=== PATIENT | male | born 1940 | race Caucasian/White ===

== ENCOUNTER 2022-12-10 21:36 | Inpatient (IN) | payer MEDICARE, OTHER ==
[~2022-12-10] VITALS: Ht 172.7 cm; Wt 70.8 kg
--- NOTE | 2022-12-10 19:00 | NUR ---
ADMISSION REPORT RECEIVED FROM AM NURSE.
--- NOTE | 2022-12-10 21:00 | NUR ---
PATIENT ARRIVED IN THE UNIT FROM [facility] VIA [facility], AWAKE, ALERT AND VERBALLY RESPONSIVE. TRANSFERRED FROM [place] TO BED WITH 2 PEOPLE ASSIST, NOTED ABDUCTION PILLOW IN BETWEEN LEGS IN PLACED. REPOSITIONED FOR COMFORT. RIGHT HIP DRESSING INTACT WITH SOME YELLOW STAIN, [facility] CARE/SKIN CARE RENDERED. SKIN ASSESSMENT PERFORMED. ORIENTED PATIENT TO STAFFS, ROOM, PLACE, CALL LIGHT, AND BED CONTROL. rOUTINE ADMISSION CARE DONE. PLAN OF CARE INITIATED.
[2022-12-10 21:08] VITALS: BP 156/74
[2022-12-10] MEDS ORDERED: ACET-2154 PO (22:34)
[2022-12-10] MEDS ORDERED: ASCO500C17 PO (22:34)
[2022-12-10] MEDS ORDERED: METO-356 PO (22:34)
[2022-12-10] MEDS ORDERED: ALBU8.5H8 IH (22:34)
[2022-12-10] MEDS ORDERED: DOCU100C36 PO (22:34)
[2022-12-10] MEDS ORDERED: DIVA125T2 PO (22:34)
[2022-12-10] MEDS ORDERED: ATOR40TA PO (22:34)
[2022-12-10] MEDS ORDERED: BISA10SU61 RC (22:34)
[2022-12-10] MEDS ORDERED: TAMS-3 PO (22:34)
[2022-12-10] MEDS ORDERED: AMLO-212 PO (22:34)
[2022-12-10] MEDS ORDERED: FINA5TAB3 PO (22:34)
[2022-12-10] MEDS ORDERED: HYDR-3972 PO (22:34)
[2022-12-10] MEDS ORDERED: LEVO50TA8 PO (22:34)
[2022-12-10] MEDS ORDERED: ENOX30DI SUBCUT (22:34)
[2022-12-10] MEDS: REMEDY ESSENTIAL ZINC PASTE 113 GM TOP SCH (23:48)
[2022-12-11 05:32] VITALS: BP 151/79
[2022-12-11 07:46] VITALS: BP 128/75
[2022-12-11] MEDS: REMEDY ESSENTIAL ZINC PASTE 113 GM TOP SCH ×2 (09:49→20:36)
[2022-12-11] MEDS ORDERED: OXYCODONE/APAP 5-325 MG TABLET PO PRN (12:45)
[2022-12-11] MEDS ORDERED: BISACODYL 10 MG SUPP.RECT RC PRN (12:45)
--- NOTE | 2022-12-11 12:58 | NUR ---
During report from night guard, I was notified that doctor was asked to reconcile meds but it had not been done yet. I messaged Jo-Ann Harrison NP at [phone] to remind him to reconcile the meds. He replied "yes" that 315 is his patient. Around noon I saw Mando, [facility] Educational Coordinator, and notified him that no meds had been reconciled yet. Mando said that he would notify Jo-Ann Harrison to reconcile meds. Dr. Maddox visited the pt at his bedside, pt complained of pain. Dr. Maddox asked me what he has for pain. I said that I had been trying to get Jo-Ann Harrison to reconcile the meds all day. Dr. Maddox ordered Percocet. After I put the Percocet into the computer, Jo-Ann Harrison NP's reconciled medications appeared just now.
[2022-12-11] MEDS ORDERED: METO50TA16 PO (12:59)
[2022-12-11] MEDS ORDERED: ALBUTEROL SULFATE 2.5 MG/3 ML NEBU NEB PRN (13:00)
[2022-12-11] MEDS ORDERED: IPRATROPIUM BROMIDE 0.5 MG/2.5 ML NEBU NEB PRN (13:00)
[2022-12-11 13:08] LABS: HEMATOCRIT 39.1 % (36.7-47.1); MEAN CORPUSCULAR HEMOGLOBIN 30.5 uug (23.8-33.4); MEAN CORPUSCULAR VOLUME 93.3 fL (73.0-96.2); PLATELET COUNT (AUTO) 227 K/uL (152-348)
[2022-12-11] MEDS: HYDROCODONE/APAP 5-325MG TABLET PO PRN (14:24)
--- NOTE | 2022-12-11 15:33 | NUR ---
INTERDISCIPLINARY TEAM CONFERENCE
[2022-12-11 15:47] VITALS: BP 134/69
[2022-12-11] MEDS ORDERED: METOPROLOL SUCCINATE XL 25 MG TAB.SR.24H PO SCH (17:00)
[2022-12-11] MEDS: METOPROLOL TARTRATE 50 MG TABLET PO SCH (17:13)
--- NOTE | 2022-12-11 18:48 | NUR ---
Pt A+Ox2, VSS throughout shift. Pt did have moments of hostility with TAILER IN, OT, PT and RN. He gets verbally aggressive. When asked if he'd like to eat, he said loudly, "I DON'T KNOW!". He was c/o pain to Dr. Maddox when he stopped by. When I asked where the pain is and what number it is from 1-10, he said calmly, "I don't know." I said, But you are having pain? He said clearly, "Yes." Monitored throughout shift, all needs met. Will endorse to shift coordinator.
[2022-12-11 18:55] LABS: CARBON DIOXIDE 28 mmol/L (21-32); CHLORIDE 104 mmol/L (98-107); CREATININE 1.2 mg/dL (0.6-1.3); GLUCOSE 84 mg/dL (74-106); POTASSIUM 4.2 mmol/L (3.5-5.1); UREA NITROGEN, BLOOD 32 mg/dL (7-18)
[2022-12-11 18:57] LABS: MAGNESIUM 2.3 mg/dL (1.8-2.4); PHOSPHOROUS 3.8 mg/dL (2.5-4.9)
[2022-12-11 18:58] LABS: THYROID STIMULATING HORMONE 1.225 mIU/mL (0.358-3.740)
--- NOTE | 2022-12-11 19:35 | NUR ---
INTERDISCIPLINARY TEAM CONFERENCE
[2022-12-11 20:00] VITALS: BP 142/68
[2022-12-11] MEDS: DOCUSATE SODIUM 100 MG CAPSULE PO SCH (20:35)
[2022-12-11] MEDS: DIVALPROEX 125 MG TABLET.DR PO SCH (20:35)
[2022-12-11] MEDS: ENOXAPARIN SODIUM 30 MG/0.3 ML DISP.SYRIN SUBCUT SCH (20:35)
[2022-12-11] MEDS: ATORVASTATIN 40 MG TABLET PO SCH (20:35)
[2022-12-12 03:52] VITALS: BP 139/60
[2022-12-12] MEDS: LEVOTHYROXINE SODIUM 50 MCG TABLET PO SCH (06:18)
--- NOTE | 2022-12-12 06:25 | NUR ---
Patient refused morning lab draw. Charge nurse aware. Will endorse to oncoming shift accordingly.
--- NOTE | 2022-12-12 07:03 | NUR ---
Finally agreed for a lab draw.
[2022-12-12 07:13] LABS: HEMATOCRIT 36.9 % (36.7-47.1); MEAN CORPUSCULAR HEMOGLOBIN 30.6 uug (23.8-33.4); MEAN CORPUSCULAR VOLUME 92.8 fL (73.0-96.2); PLATELET COUNT (AUTO) 255 K/uL (152-348)
[2022-12-12 07:45] LABS: CARBON DIOXIDE 32 mmol/L (21-32); CHLORIDE 105 mmol/L (98-107); CREATININE 1.1 mg/dL (0.6-1.3); GLUCOSE 112 mg/dL (74-106); MAGNESIUM 2.2 mg/dL (1.8-2.4); PHOSPHOROUS 3.3 mg/dL (2.5-4.9); POTASSIUM 4.4 mmol/L (3.5-5.1); UREA NITROGEN, BLOOD 34 mg/dL (7-18)
[2022-12-12] MEDS: DIVALPROEX 125 MG TABLET.DR PO SCH ×2 (08:00→20:43)
[2022-12-12] MEDS: METOPROLOL TARTRATE 50 MG TABLET PO SCH ×2 (08:01→17:28)
[2022-12-12] MEDS: ASCORBIC ACID 500 MG TABLET PO SCH (08:55)
[2022-12-12] MEDS: FINASTERIDE 5 MG TABLET PO SCH (08:55)
[2022-12-12] MEDS: AMLODIPINE 5 MG TABLET PO SCH (08:55)
[2022-12-12] MEDS: REMEDY ESSENTIAL ZINC PASTE 113 GM TOP SCH ×2 (08:56→20:46)
[2022-12-12] MEDS ORDERED: TAMSULOSIN HCL 0.4 MG CAP.SR.24H PO SCH (09:00)
[2022-12-12] MEDS ORDERED: ASCORBIC ACID 500 MG TABLET PO SCH (09:00)
[2022-12-12 09:04] VITALS: BP 155/79
[2022-12-12] MEDS: HYDROCODONE/APAP 5-325MG TABLET PO PRN (09:34)
[2022-12-12 15:12] VITALS: BP 120/60
[2022-12-12 20:00] VITALS: BP 114/61
[2022-12-12] MEDS: ATORVASTATIN 40 MG TABLET PO SCH (20:43)
[2022-12-12] MEDS: DOCUSATE SODIUM 100 MG CAPSULE PO SCH (20:43)
[2022-12-12] MEDS: ENOXAPARIN SODIUM 30 MG/0.3 ML DISP.SYRIN SUBCUT SCH (20:45)
--- NOTE | 2022-12-12 23:00 | NUR ---
1915- The patient is aox2. The patient has an abductor pillow to prevent crossing his legs. The patient has no IV access. The patient does not have any sob or complains of pain. The patient is resting comfortably. Call light within reach, two side rails up, bed at lowest posintion, bed alarm on. Will continue to monitor throughout the shift. 2200- The patient requesty for an extra pillow. Item is given to the patient. The patient has no sob. Will continue to monitor throughout the shift. 0400- Changed the dressings of the right hip. Clean, dry, and intact dressings. The patient has no sob or complains of pain. Will continue to monitor throughout the shift.
[2022-12-13 04:00] VITALS: BP 139/70
[2022-12-13] MEDS: LEVOTHYROXINE SODIUM 50 MCG TABLET PO SCH (06:26)
[2022-12-13 07:41] VITALS: BP 156/74
[2022-12-13 08:00] VITALS: BP 156/74
[2022-12-13] MEDS: METOPROLOL TARTRATE 50 MG TABLET PO SCH ×2 (09:23→17:00)
[2022-12-13] MEDS: DIVALPROEX 125 MG TABLET.DR PO SCH ×2 (09:23→20:32)
[2022-12-13] MEDS: ASCORBIC ACID 500 MG TABLET PO SCH (09:23)
[2022-12-13] MEDS: REMEDY ESSENTIAL ZINC PASTE 113 GM TOP SCH ×2 (09:24→20:33)
[2022-12-13] MEDS: AMLODIPINE 5 MG TABLET PO SCH (09:24)
[2022-12-13] MEDS: FINASTERIDE 5 MG TABLET PO SCH (09:24)
[2022-12-13] MEDS: HYDROCODONE/APAP 5-325MG TABLET PO PRN ×2 (12:21→17:09)
[2022-12-13 15:26] VITALS: BP 100/55
[2022-12-13 20:19] VITALS: BP 147/66
[2022-12-13] MEDS: DOCUSATE SODIUM 100 MG CAPSULE PO SCH (20:32)
[2022-12-13] MEDS: ATORVASTATIN 40 MG TABLET PO SCH (20:32)
[2022-12-13] MEDS: TAMSULOSIN HCL 0.4 MG CAP.SR.24H PO SCH (20:32)
[2022-12-13] MEDS: ENOXAPARIN SODIUM 30 MG/0.3 ML DISP.SYRIN SUBCUT SCH (20:35)
--- NOTE | 2022-12-13 23:00 | NUR ---
1915- The patient is aox2. The patient has an abductor pillow to prevent crossing his legs. The patient has no IV access. The patient does not have any sob or complains of pain. The patient is resting comfortably. Call light within reach, two side rails up, bed at lowest position, bed alarm on. Will continue to monitor throughout the shift. 2300- The patient request for an extra blanket. Item is given to the patient. The patient has no sob. Will continue to monitor throughout the shift. 0500- Changed the dressings of the right hip. Clean, dry, and intact dressings. The patient has no sob or complains of pain. Will continue to monitor throughout the shift.
[2022-12-14] MEDS: HYDROCODONE/APAP 5-325MG TABLET PO PRN ×2 (01:45→12:39)
[2022-12-14 04:22] VITALS: BP 134/68
[2022-12-14] MEDS: LEVOTHYROXINE SODIUM 50 MCG TABLET PO SCH (06:40)
--- NOTE | 2022-12-14 07:30 | NUR ---
received report on patient from dye tub tender. A/Ox2, disoriented to time. pt on room air, saturating at 94%, on bedrest with abductor pillow. pt on pureed diet, max assist. Bed in low and locked position, call light within reach, will continue to monitor.
[2022-12-14] MEDS: ASCORBIC ACID 500 MG TABLET PO SCH (09:29)
[2022-12-14] MEDS: DIVALPROEX 125 MG TABLET.DR PO SCH ×2 (09:29→21:41)
[2022-12-14] MEDS: FINASTERIDE 5 MG TABLET PO SCH (09:30)
[2022-12-14] MEDS: REMEDY ESSENTIAL ZINC PASTE 113 GM TOP SCH ×2 (09:30→21:41)
[2022-12-14] MEDS: METOPROLOL TARTRATE 50 MG TABLET PO SCH ×2 (09:35→17:32)
[2022-12-14] MEDS: AMLODIPINE 5 MG TABLET PO SCH (09:35)
[2022-12-14 20:16] VITALS: BP 118/54
[2022-12-14] MEDS: DOCUSATE SODIUM 100 MG CAPSULE PO SCH (21:41)
[2022-12-14] MEDS: ATORVASTATIN 40 MG TABLET PO SCH (21:41)
[2022-12-14] MEDS: TAMSULOSIN HCL 0.4 MG CAP.SR.24H PO SCH (21:41)
[2022-12-14] MEDS: ENOXAPARIN SODIUM 30 MG/0.3 ML DISP.SYRIN SUBCUT SCH (21:47)
--- NOTE | 2022-12-14 23:00 | NUR ---
1915- The patient is aox2. The patient has an abductor pillow to prevent crossing his legs. The patient does not have any sob or complains of pain. The patient is resting comfortably. Call light within reach, two side rails up, bed at lowest position, bed alarm on. Will continue to monitor throughout the shift. 2200- The patient request for an extra pillow. Item is given to the patient. The patient has no sob. Will continue to monitor throughout the shift. 0600- Changed the dressings of the right hip. Clean, dry, and intact dressings. The patient has no sob or complains of pain. Will continue to monitor throughout the shift.
[2022-12-15] MEDS: HYDROCODONE/APAP 5-325MG TABLET PO PRN ×3 (03:13→16:35)
[2022-12-15 04:11] VITALS: BP 147/68
[2022-12-15 06:16] LABS: HEMATOCRIT 38.1 % (36.7-47.1); MEAN CORPUSCULAR VOLUME 93.4 fL (73.0-96.2); PLATELET COUNT (AUTO) 336 K/uL (152-348)
[2022-12-15] MEDS: LEVOTHYROXINE SODIUM 50 MCG TABLET PO SCH (06:18)
[2022-12-15 06:39] LABS: THYROID STIMULATING HORMONE 3.587 mIU/mL (0.358-3.740)
[2022-12-15 06:53] LABS: BILIRUBIN,TOTAL 0.3 mg/dL (0.2-1.0); CREATININE 1.3 mg/dL (0.6-1.3); MAGNESIUM 2.1 mg/dL (1.8-2.4); PHOSPHOROUS 3.2 mg/dL (2.5-4.9); POTASSIUM 5.2 mmol/L (3.5-5.1); TOTAL PROTEIN, SERUM 6.5 g/dL (6.4-8.2)
[2022-12-15 07:56] VITALS: BP 132/84
[2022-12-15] MEDS ORDERED: ACETAMINOPHEN 325 MG TABLET PO PRN (08:15)
[2022-12-15] MEDS: ASCORBIC ACID 500 MG TABLET PO SCH (08:32)
[2022-12-15] MEDS: AMLODIPINE 5 MG TABLET PO SCH (08:32)
[2022-12-15] MEDS: REMEDY ESSENTIAL ZINC PASTE 113 GM TOP SCH ×2 (08:33→21:10)
[2022-12-15] MEDS: METOPROLOL TARTRATE 50 MG TABLET PO SCH ×2 (08:33→16:35)
[2022-12-15] MEDS: FINASTERIDE 5 MG TABLET PO SCH (08:33)
[2022-12-15] MEDS: DIVALPROEX 125 MG TABLET.DR PO SCH ×2 (08:33→21:07)
--- NOTE | 2022-12-15 15:54 | NUR ---
patient is alert, oriented x4, no sob, respiration are even nonlabored, skin warm and dry to touch, incision site is clean and dry, no signs and symptoms of infection noted
[2022-12-15 16:24] VITALS: BP 134/61
--- NOTE | 2022-12-15 17:55 | NUR ---
Patient has no respiratory symptom, no cough, no congestion, no sob, respirations are even nonlabored skin warm and dry to touch, afebrile, saturating well 94% at room air. patient tolerated PT, OT well, patient stated she has urinary frequency, and mild to moderate dysuria. however no hematuria. patient is alert, oriented x4, no acute distress noted. Addendum: 12/15/22 at 1800 by SAAD COLIN RN, RN disregard above documentation, wrong patient.
[2022-12-15 19:00] VITALS: BP 111/58
[2022-12-15] MEDS: ATORVASTATIN 40 MG TABLET PO SCH (21:07)
[2022-12-15] MEDS: TAMSULOSIN HCL 0.4 MG CAP.SR.24H PO SCH (21:07)
[2022-12-15] MEDS: DOCUSATE SODIUM 100 MG CAPSULE PO SCH (21:07)
[2022-12-15] MEDS: ENOXAPARIN SODIUM 30 MG/0.3 ML DISP.SYRIN SUBCUT SCH (21:09)
[2022-12-16 04:28] VITALS: BP 128/67
--- NOTE | 2022-12-16 05:41 | NUR ---
Pt slept comfortably. Kept abduction pillow between legs. Denies pain or discomfort. Kept dry and clean. All needs attended. Safety precautions maintained.
[2022-12-16] MEDS: HYDROCODONE/APAP 5-325MG TABLET PO PRN ×2 (06:12→11:21)
[2022-12-16] MEDS: LEVOTHYROXINE SODIUM 50 MCG TABLET PO SCH (06:13)
[2022-12-16 07:58] VITALS: BP 141/62
[2022-12-16] MEDS: DIVALPROEX 125 MG TABLET.DR PO SCH ×2 (08:22→20:37)
[2022-12-16] MEDS: AMLODIPINE 5 MG TABLET PO SCH (08:22)
[2022-12-16] MEDS: METOPROLOL TARTRATE 50 MG TABLET PO SCH ×2 (08:22→16:52)
[2022-12-16] MEDS: FINASTERIDE 5 MG TABLET PO SCH (08:22)
[2022-12-16] MEDS: ASCORBIC ACID 500 MG TABLET PO SCH (08:22)
[2022-12-16] MEDS: REMEDY ESSENTIAL ZINC PASTE 113 GM TOP SCH ×2 (08:23→20:38)
--- NOTE | 2022-12-16 08:36 | NUR ---
0730-Rec'd patient in bed, awake, verbally communicative, denies pain. On R/A and andrew. well, no physical or respiratory distress noted. Oral fluids encouraged and taken well; HOB elevated, aspiration precautions observed. Encouraged to use call light for help every time needed. All safety measures in place.
--- NOTE | 2022-12-16 09:36 | NUR ---
0900-Scheduled medications administered as ordered. No ASE noted; patient swallow pills with apple sauce. Aspiration precautions observed, no s/s of chocking noted. Patient requires of one person physical assist to set up meal tray and to be fed.
--- NOTE | 2022-12-16 14:30 | NUR ---
1:40pm-Ashely CRANE (PHARMACIST) CAME UP TO THE UNIT, WE BOTH ATTEMPTED TO CORRECT NARCOTIC (OXYIR) DISCREPANCY & UNABLE TO SOLVE IT, PER RYOCE, "I DO NOT KNOW HOW TO GET RID OF THE MESSAGE PROMPTING" 2:32PM-LEFT A MESSAGE FOR HS, ALENA TO COME UP TO THE FLOOR AND HELP OUT SOLVE THE ISSUE & AWAITING. Addendum: 12/16/22 at 1528 by OLIVIA EVERETT RN INCORRECT PATIENT
--- NOTE | 2022-12-16 15:49 | NUR ---
LAB RESULTS FOR CBC/BMP DATED 12/15/[address] JAIME.
[2022-12-16 15:50] VITALS: BP 118/54
--- NOTE | 2022-12-16 18:49 | NUR ---
RIGHT HIP SURGICAL SITE, DRESSING CHANGED, NO S/S OF INFECTION OR BLEEDING NOTED. ASSISTED PATIENT THROUGH OUT THE SHIFT. CARE PROVIDED AT ROUTINE INTERVALS/PRN. ALL NEEDS ANTICIPATED AND MET.
[2022-12-16 20:00] VITALS: BP 156/70
[2022-12-16] MEDS: DOCUSATE SODIUM 100 MG CAPSULE PO SCH (20:37)
[2022-12-16] MEDS: TAMSULOSIN HCL 0.4 MG CAP.SR.24H PO SCH (20:37)
[2022-12-16] MEDS: ATORVASTATIN 40 MG TABLET PO SCH (20:37)
[2022-12-16] MEDS: ENOXAPARIN SODIUM 30 MG/0.3 ML DISP.SYRIN SUBCUT SCH (20:37)
--- NOTE | 2022-12-17 01:04 | NUR ---
given Tylenol c/o generalized pain . patient took medication with applesauce .
--- NOTE | 2022-12-17 02:30 | NUR ---
incontinent of urine meat department manager changed soiled linens and gown . noted patient scratching his upper and lower extremities skin is dry applied lotion to upper and lower extremities .
--- NOTE | 2022-12-17 03:30 | NUR ---
sleeping in bed no respiratory distress noted breathing even and unlabored .
[2022-12-17 04:00] VITALS: BP 124/56
--- NOTE | 2022-12-17 04:06 | NUR ---
given [place] c/o left hip pain patient said left hip given NORCO .
[2022-12-17] MEDS: HYDROCODONE/APAP 5-325MG TABLET PO PRN ×2 (04:54→09:03)
[2022-12-17 07:12] LABS: HEMATOCRIT 36.3 % (36.7-47.1); MEAN CORPUSCULAR HEMOGLOBIN 30.5 uug (23.8-33.4); MEAN CORPUSCULAR VOLUME 92.7 fL (73.0-96.2); PLATELET COUNT (AUTO) 377 K/uL (152-348)
[2022-12-17 07:25] LABS: ALANINE AMINOTRANSFERASE 23 U/L (16-63); ALKALINE PHOSPHATASE 83 U/L (50-136); ASPARTATE AMINOTRANSFERASE 19 U/L (15-37); BILIRUBIN,TOTAL 0.3 mg/dL (0.2-1.0); CARBON DIOXIDE 31 mmol/L (21-32); CHLORIDE 105 mmol/L (98-107); CREATININE 1.3 mg/dL (0.6-1.3); GLUCOSE 96 mg/dL (74-106); MAGNESIUM 2.2 mg/dL (1.8-2.4); PHOSPHOROUS 3.2 mg/dL (2.5-4.9); POTASSIUM 4.3 mmol/L (3.5-5.1); TOTAL PROTEIN, SERUM 6.2 g/dL (6.4-8.2); UREA NITROGEN, BLOOD 31 mg/dL (7-18)
[2022-12-17 07:55] VITALS: BP 140/57
[2022-12-17] MEDS: LEVOTHYROXINE SODIUM 50 MCG TABLET PO SCH (07:59)
[2022-12-17] MEDS: FINASTERIDE 5 MG TABLET PO SCH (08:18)
[2022-12-17] MEDS: ASCORBIC ACID 500 MG TABLET PO SCH (08:18)
[2022-12-17] MEDS: DIVALPROEX 125 MG TABLET.DR PO SCH ×2 (08:18→20:41)
[2022-12-17] MEDS: REMEDY ESSENTIAL ZINC PASTE 113 GM TOP SCH ×2 (08:18→20:51)
[2022-12-17] MEDS: AMLODIPINE 5 MG TABLET PO SCH (08:18)
[2022-12-17] MEDS: METOPROLOL TARTRATE 50 MG TABLET PO SCH ×2 (08:18→17:54)
--- NOTE | 2022-12-17 09:05 | NUR ---
0730-REC'D PATIENT IN BED, ASLEEP, NO ACUTE RESPIRATORY DISTRESS, ABLE TO WAKE UP ON VERBAL COMMANDS/TACTILE STIMULI. PATIENT DENIES PAIN, ORAL FLUIDS OFFERED AND TAKEN WELL. SAFETY MEASURES AND CALL LIGHT AT REACH. 0900-SCHEDULED MEDICATION ADMINISTERED WITH NO ASE NOTED.
[2022-12-17] MEDS ORDERED: ZINC TOP PRN (10:00)
[2022-12-17] MEDS ORDERED: DIPHENHYDRAMINE TOP PRN (10:00)
--- NOTE | 2022-12-17 10:44 | NUR ---
Received report from Mesha RN to take over care for the rest of the day shift starting now. Pt in bed resting at this time, no s/s of distress noted. Will continue with care as ordered.
[2022-12-17 15:40] VITALS: BP 107/58
[2022-12-17 15:50] VITALS: BP 98/50
[2022-12-17 20:00] VITALS: BP 134/66
[2022-12-17] MEDS: DOCUSATE SODIUM 100 MG CAPSULE PO SCH (20:41)
[2022-12-17] MEDS: TAMSULOSIN HCL 0.4 MG CAP.SR.24H PO SCH (20:41)
[2022-12-17] MEDS: ENOXAPARIN SODIUM 30 MG/0.3 ML DISP.SYRIN SUBCUT SCH (20:50)
--- NOTE | 2022-12-18 03:48 | NUR ---
Awake alert and oriented x3-4 with periods of forgetfulness. All needs attended. Tolerated po meds well Fall precautions maintained. Incontinent of bowel and bladder. Kept clean and dry. No BM noted this shift. Will monitor patient. Patient S/P ORIF of the right hip. Right hip incision with adan intact. Dressing clean dry and intact. VSS.
[2022-12-18 04:00] VITALS: BP 138/65
[2022-12-18] MEDS: LEVOTHYROXINE SODIUM 50 MCG TABLET PO SCH (06:18)
[2022-12-18 07:31] VITALS: BP 125/68
[2022-12-18] MEDS: DIVALPROEX 125 MG TABLET.DR PO SCH ×2 (08:37→20:41)
[2022-12-18] MEDS: ASCORBIC ACID 500 MG TABLET PO SCH (08:37)
[2022-12-18] MEDS: METOPROLOL TARTRATE 50 MG TABLET PO SCH ×2 (08:38→17:17)
[2022-12-18] MEDS: FINASTERIDE 5 MG TABLET PO SCH (08:38)
[2022-12-18] MEDS: AMLODIPINE 5 MG TABLET PO SCH (08:38)
[2022-12-18] MEDS: REMEDY ESSENTIAL ZINC PASTE 113 GM TOP SCH ×2 (08:40→20:41)
[2022-12-18] MEDS: HYDROCODONE/APAP 5-325MG TABLET PO PRN ×2 (08:57→13:42)
--- NOTE | 2022-12-18 12:56 | NUR ---
INTERDISCIPLINARY TEAM CONFERENCE
[2022-12-18 16:00] VITALS: BP 112/46
--- NOTE | 2022-12-18 19:52 | NUR ---
RECEIVED REPORT FROM JA VAUGHN, ILAN SHIFT. PATIENT IS ALERT & ORIENTED X2-3, WITH PERIODS OF FORGETFULNESS, AND SPEAKS ROMANIAN. VITAL SIGNS STABLE. PATIENT TOLERATES PO MEDICATIONS AND DIET WELL. PATIENT PARTICIPATES WITH PHYSICAL AND OCCUPATIONAL THERAPY SCHEDULED. PATIENT HAD COMPLAINT OF PAIN. RN PROVIDED MEDICATIONS ORDERED BY MD. PATIENT EXPRESSED RELIEF. RN NOTED NEW SKIN TEAR ON THE RIGHT ELBOW. WOUND CONSULT ORDERED. CLEANED WITH NORMAL SALINE, APPLIED OIL EMULSION DRESSING. ALL NEEDS ATTENDED TO AT THIS TIME. NO ACUTE DISTRESS NOTED. FALL PRECAUTIONS IN PLACE. ENDORSED CARE TO JA TOVAR, ILAN SHIFT FOR CONTINUATION OF CARE.
[2022-12-18 20:00] VITALS: BP 115/54
[2022-12-18] MEDS: ENOXAPARIN SODIUM 30 MG/0.3 ML DISP.SYRIN SUBCUT SCH (20:39)
[2022-12-18] MEDS: TAMSULOSIN HCL 0.4 MG CAP.SR.24H PO SCH (20:41)
[2022-12-18] MEDS: DOCUSATE SODIUM 100 MG CAPSULE PO SCH (20:41)
--- NOTE | 2022-12-18 23:00 | NUR ---
1905-The patient is aox2. The patient has an abductor pillow to prevent crossing his legs. The patient has no IV access. The patient does not have any sob or complains of pain. The patient is resting comfortably. Call light within reach, two side rails up, bed at lowest position, bed alarm on. Will continue to monitor throughout the shift. 2200- The patient request for extra apple juice. Item is given to the patient. The patient has no sob. Will continue to monitor throughout the shift. 0530- Changed the dressings of the right hip. Clean, dry, and intact dressings. The patient has no sob or complains of pain. Will continue to monitor throughout the shift.
[2022-12-19 04:00] VITALS: BP 141/60
[2022-12-19] MEDS: LEVOTHYROXINE SODIUM 50 MCG TABLET PO SCH (06:15)
[2022-12-19 07:46] VITALS: BP 118/64
[2022-12-19] MEDS: AMLODIPINE 5 MG TABLET PO SCH (09:00)
[2022-12-19] MEDS: METOPROLOL TARTRATE 50 MG TABLET PO SCH ×2 (09:00→16:53)
[2022-12-19] MEDS: ASCORBIC ACID 500 MG TABLET PO SCH (09:04)
[2022-12-19] MEDS: FINASTERIDE 5 MG TABLET PO SCH (09:04)
[2022-12-19] MEDS: HYDROCODONE/APAP 5-325MG TABLET PO PRN ×2 (09:06→15:18)
[2022-12-19] MEDS: DIVALPROEX 125 MG TABLET.DR PO SCH ×2 (09:06→20:27)
[2022-12-19] MEDS: REMEDY ESSENTIAL ZINC PASTE 113 GM TOP SCH ×2 (09:10→20:27)
--- NOTE | 2022-12-19 11:53 | NUR ---
WOUND CARE CONSULT: PT PRESENTS WITH AREAS OF SCRATCH HEATH/EXCORIATIONS WITH TINY SCABS TO LOWER LEGS, BACK, GROIN AREA, SHOULDERS, PRESENT ON ADMISSION, UNKNOWN ETIOLOGY. DEFER TO PMD FOR SKIN CONDITION. PT PRESENTS WITH RASH/REDNESS TO PENIS, PERINEUM AND BUTTOCKS, PRESENT ON ADMISSION. PT IS INCONTINENT. BONY SACRAL AREA NOTED. RT ELBOW SKIN TEAR NOTED. RECOMMENDATIONS MADE FOR SKIN PROTECTION AND WOUND CARE. DISCUSSED WITH NURSING STAFF. MD IN AGREEMENT WITH PLAN OF CARE. Addendum: 12/19/22 at 1156 by JUDY BLUM RN Amended: Links added.
[2022-12-19] MEDS ORDERED: diphenhydrAMINE 25 MG CAP PO PRN (12:15)
[2022-12-19 15:07] VITALS: BP 150/74
[2022-12-19 15:10] VITALS: BP 144/57
[2022-12-19] MEDS: CLOTRIMAZOLE 1% CREAM 30 GM TUBE TOP SCH (16:52)
--- NOTE | 2022-12-19 19:20 | NUR ---
RECEIVED REPORT FROM JA TOVAR, ILAN SHIFT. PATIENT IS ALERT & ORIENTED X2-3, WITH PERIODS OF FORGETFULNESS, AND SPEAKS [place]. VITAL SIGNS STABLE. PATIENT TOLERATES PO MEDICATIONS AND DIET WELL. PATIENT PARTICIPATES WITH PHYSICAL AND OCCUPATIONAL THERAPY SCHEDULED. PATIENT HAD COMPLAINT OF PAIN. RN PROVIDED MEDICATIONS ORDERED BY MD. PATIENT EXPRESSED RELIEF. WOUND CARE NURSE, JUDY, VISITED AND INPUT ORDERS. RN CARRIED OUT ORDERS. ALL NEEDS ATTENDED TO AT THIS TIME. NO ACUTE DISTRESS NOTED. FALL PRECAUTIONS IN PLACE. ENDORSED CARE TO JA TOVAR, ILAN SHIFT FOR CONTINUATION OF CARE.
[2022-12-19 20:00] VITALS: BP 115/48
[2022-12-19] MEDS: TAMSULOSIN HCL 0.4 MG CAP.SR.24H PO SCH (20:27)
[2022-12-19] MEDS: DOCUSATE SODIUM 100 MG CAPSULE PO SCH (20:27)
[2022-12-19] MEDS: ENOXAPARIN SODIUM 30 MG/0.3 ML DISP.SYRIN SUBCUT SCH (20:28)
--- NOTE | 2022-12-19 23:00 | NUR ---
1910-The patient is aox2. The patient has an abductor pillow to prevent crossing his legs. The patient has no IV access. The patient does not have any sob or complains of pain. The patient is resting comfortably. Call light within reach, two side rails up, bed at lowest position, bed alarm on. Will continue to monitor throughout the shift. 2300- The patient request for extra warm blankets. Item is given to the patient. The patient has no sob. Will continue to monitor throughout the shift. 0400- Clean, dry, and intact dressing of the right hip. The patient has no sob or complains of pain. Will continue to monitor throughout the shift.
[2022-12-20 04:00] VITALS: BP 121/67
[2022-12-20] MEDS: LEVOTHYROXINE SODIUM 50 MCG TABLET PO SCH (06:20)
[2022-12-20 07:29] VITALS: BP 146/62
[2022-12-20] MEDS: FINASTERIDE 5 MG TABLET PO SCH (08:08)
[2022-12-20] MEDS: AMLODIPINE 5 MG TABLET PO SCH (08:08)
[2022-12-20] MEDS: DIVALPROEX 125 MG TABLET.DR PO SCH ×2 (08:08→20:13)
[2022-12-20] MEDS: HYDROCODONE/APAP 5-325MG TABLET PO PRN ×3 (08:08→20:14)
[2022-12-20] MEDS: ASCORBIC ACID 500 MG TABLET PO SCH (08:08)
[2022-12-20] MEDS: METOPROLOL TARTRATE 50 MG TABLET PO SCH ×2 (08:09→16:50)
[2022-12-20] MEDS: CLOTRIMAZOLE 1% CREAM 30 GM TUBE TOP SCH ×2 (08:12→16:50)
[2022-12-20] MEDS: REMEDY ESSENTIAL ZINC PASTE 113 GM TOP SCH ×2 (08:13→20:17)
[2022-12-20 16:42] VITALS: BP 112/53
--- NOTE | 2022-12-20 19:33 | NUR ---
RECEIVED REPORT FROM JA TOVAR, ILAN SHIFT. PATIENT IS ALERT & ORIENTED X2-3, WITH PERIODS OF FORGETFULNESS, AND SPEAKS MALAY. VITAL SIGNS STABLE. PATIENT TOLERATES PO MEDICATIONS AND DIET WELL. PATIENT PARTICIPATES WITH PHYSICAL AND OCCUPATIONAL THERAPY SCHEDULED. PATIENT HAD COMPLAINT OF PAIN. RN PROVIDED MEDICATIONS ORDERED BY MD. PATIENT EXPRESSED RELIEF. PATIENT HAD ONE INCIDENT OF IRRITATION/AGGRESSION REGARDING THE ABDUCTOR PILLOW. RN ABLE TO DEFUSE SITUATION. ALL NEEDS ATTENDED TO AT THIS TIME. NO ACUTE DISTRESS NOTED. FALL PRECAUTIONS IN PLACE. ENDORSED CARE TO JA TOVAR, ILAN SHIFT FOR CONTINUATION OF CARE.
[2022-12-20 20:00] VITALS: BP 121/53
[2022-12-20] MEDS: DOCUSATE SODIUM 100 MG CAPSULE PO SCH (20:13)
[2022-12-20] MEDS: TAMSULOSIN HCL 0.4 MG CAP.SR.24H PO SCH (20:13)
[2022-12-20] MEDS: ENOXAPARIN SODIUM 30 MG/0.3 ML DISP.SYRIN SUBCUT SCH (20:16)
--- NOTE | 2022-12-20 23:00 | NUR ---
1900-The patient is aox2. The patient has an abductor pillow to prevent crossing his legs. The patient has no IV access. The patient does not have any sob or complains of pain. The patient is resting comfortably. Call light within reach, two side rails up, bed at lowest position, bed alarm on. Will continue to monitor throughout the shift. 2250- The patient is disoriented and trying to get out off bed. Reorient the patient but the patient is still confused. Obtained order for bilateral soft wrist restraint from GLASS GRINDER (Jake). The patient is risk for injury to self and risk for his right hip surgical wound to open. Changed right hip dressing. The patient has no bleeding and dressing is clean, dry, and intact. Continuous q2hr assessment and q15 minutes skin assessment. Will continue to monitor throughout the shift. 0100- The patient has no sob or complains of pain. Will continue to monitor throughout the shift. 0300- The patient is asleep and has no complains of pain. Will continue to monitor throughout the shift.
[2022-12-21 04:00] VITALS: BP 125/70
[2022-12-21] MEDS: LEVOTHYROXINE SODIUM 50 MCG TABLET PO SCH (06:04)
[2022-12-21 07:50] VITALS: BP 151/74
[2022-12-21] MEDS: FINASTERIDE 5 MG TABLET PO SCH (08:24)
[2022-12-21] MEDS: DIVALPROEX 125 MG TABLET.DR PO SCH ×2 (08:25→20:49)
[2022-12-21] MEDS: ASCORBIC ACID 500 MG TABLET PO SCH (08:25)
[2022-12-21] MEDS: METOPROLOL TARTRATE 50 MG TABLET PO SCH ×2 (08:25→16:22)
[2022-12-21] MEDS: AMLODIPINE 5 MG TABLET PO SCH (08:25)
[2022-12-21] MEDS: REMEDY ESSENTIAL ZINC PASTE 113 GM TOP SCH ×2 (08:26→20:49)
[2022-12-21] MEDS: CLOTRIMAZOLE 1% CREAM 30 GM TUBE TOP SCH ×2 (08:27→16:30)
[2022-12-21] MEDS: HYDROCODONE/APAP 5-325MG TABLET PO PRN ×2 (09:06→14:15)
--- NOTE | 2022-12-21 09:30 | NUR ---
0730-Upon shift exchanged routine rounds rec'd patient in bed, no apparent respiratory distress, on room air and andrew. well. Patient awake, alert and able to verbalize his needs. Patient denies pain at this time, safety measures in place, call light at reach. 0900-Scheduled medication administered, no ASE noted. Oral fluids taken well, assisted patient to set up meal tray, patient able to feed himself, no swallowing problems observed. Patient denies GI discomfort, no N/V noted.
[2022-12-21 16:26] VITALS: BP 116/48
--- NOTE | 2022-12-21 17:49 | NUR ---
Right hip surgical site treatment done as ordered, affected area healing well, no s/s of infection or bleeding noted, patient andrew. treatment well, denies pain, aseptic tech. applied. Handled gently and carefully, needs anticipated and met through out the shift. No EMILE noted.
[2022-12-21 20:31] VITALS: BP 134/53
[2022-12-21] MEDS: TAMSULOSIN HCL 0.4 MG CAP.SR.24H PO SCH (20:49)
[2022-12-21] MEDS: DOCUSATE SODIUM 100 MG CAPSULE PO SCH (20:49)
[2022-12-21] MEDS: ENOXAPARIN SODIUM 30 MG/0.3 ML DISP.SYRIN SUBCUT SCH (20:55)
--- NOTE | 2022-12-22 04:15 | NUR ---
Awake alert and oriented x1. Confused and disoriented. VSS. Needs attended. Took meds without difficulty. Calm and quiet this shift. Will monitor patient. No acute distress noted. Siderails up for safety. All needs attended. All due meds given without difficulty. Incontinent of urine x2. Kept clean and dry. No BM noted this shift. Genera;lized rashes noted to all over body and penile area. Will monitor patient.
--- NOTE | 2022-12-22 04:20 | NUR ---
Right hip dressing clean dry and intact. Dressing in placed. Will monitor patient.
[2022-12-22 04:35] VITALS: BP 130/75
[2022-12-22] MEDS: LEVOTHYROXINE SODIUM 50 MCG TABLET PO SCH (06:10)
--- NOTE | 2022-12-22 07:05 | NUR ---
patient is calm comfortable, no acute distress noted. patient is not on any restraints.
[2022-12-22 07:45] VITALS: BP 144/71
[2022-12-22 08:19] VITALS: BP 144/71
[2022-12-22] MEDS: FINASTERIDE 5 MG TABLET PO SCH (08:22)
[2022-12-22] MEDS: AMLODIPINE 5 MG TABLET PO SCH (08:22)
[2022-12-22] MEDS: DIVALPROEX 125 MG TABLET.DR PO SCH ×2 (08:22→21:04)
[2022-12-22] MEDS: ASCORBIC ACID 500 MG TABLET PO SCH (08:22)
[2022-12-22] MEDS: REMEDY ESSENTIAL ZINC PASTE 113 GM TOP SCH ×2 (08:23→21:08)
[2022-12-22] MEDS: CLOTRIMAZOLE 1% CREAM 30 GM TUBE TOP SCH ×2 (08:23→17:11)
[2022-12-22] MEDS: METOPROLOL TARTRATE 50 MG TABLET PO SCH ×2 (08:26→17:11)
[2022-12-22 16:36] VITALS: BP 114/50
--- NOTE | 2022-12-22 18:22 | NUR ---
no acute distress noted
[2022-12-22 20:05] VITALS: BP 132/68
[2022-12-22] MEDS: DOCUSATE SODIUM 100 MG CAPSULE PO SCH (21:04)
[2022-12-22] MEDS: TAMSULOSIN HCL 0.4 MG CAP.SR.24H PO SCH (21:04)
[2022-12-22] MEDS: ENOXAPARIN SODIUM 30 MG/0.3 ML DISP.SYRIN SUBCUT SCH (21:08)
[2022-12-23 04:16] VITALS: BP 115/63
[2022-12-23] MEDS: LEVOTHYROXINE SODIUM 50 MCG TABLET PO SCH (06:35)
[2022-12-23 07:46] VITALS: BP 121/57
--- NOTE | 2022-12-23 07:50 | NUR ---
Patient is stable no acute distress. No behavior issues observed or reported. He slept very well during night monitor. Will continue to monitor patient for safety.
[2022-12-23] MEDS: DIVALPROEX 125 MG TABLET.DR PO SCH ×2 (08:50→20:35)
[2022-12-23] MEDS: FINASTERIDE 5 MG TABLET PO SCH (08:51)
[2022-12-23] MEDS: ASCORBIC ACID 500 MG TABLET PO SCH (08:51)
[2022-12-23] MEDS: METOPROLOL TARTRATE 50 MG TABLET PO SCH ×2 (08:53→17:00)
[2022-12-23] MEDS: AMLODIPINE 5 MG TABLET PO SCH (08:53)
[2022-12-23] MEDS: REMEDY ESSENTIAL ZINC PASTE 113 GM TOP SCH ×2 (08:54→20:35)
[2022-12-23] MEDS: CLOTRIMAZOLE 1% CREAM 30 GM TUBE TOP SCH ×2 (08:54→17:06)
[2022-12-23] MEDS: HYDROCODONE/APAP 5-325MG TABLET PO PRN (13:30)
--- NOTE | 2022-12-23 14:42 | NUR ---
Patient is comfortable currently. No acute distress noted. Medication taken whole. Huslia given prior to Physical therapy around 1330. Chief complaint is s/p fall right femoral neck fracture. For now will continue to manage patient pain. No new concern at this time. Will continue to monitor.
[2022-12-23 16:30] VITALS: BP 106/41
--- NOTE | 2022-12-23 18:46 | NUR ---
Held Metoprolol due to low blood pressure.
[2022-12-23 20:00] VITALS: BP 151/68
[2022-12-23] MEDS: ENOXAPARIN SODIUM 30 MG/0.3 ML DISP.SYRIN SUBCUT SCH (20:35)
[2022-12-23] MEDS: TAMSULOSIN HCL 0.4 MG CAP.SR.24H PO SCH (20:35)
[2022-12-23] MEDS: DOCUSATE SODIUM 100 MG CAPSULE PO SCH (20:35)
[2022-12-24 04:00] VITALS: BP 132/66
[2022-12-24] MEDS: LEVOTHYROXINE SODIUM 50 MCG TABLET PO SCH (06:17)
--- NOTE | 2022-12-24 07:55 | NUR ---
0730-Patient in bed, awake, alert/ox2-3 with intermittent confusion/forgetfulness, reality orientation provided as needed. Patient able to make needs known, watching TV at this time. On R/A with no respiratory distress noted, patient denies any pain. Safety measures in place and call light at reach.
[2022-12-24 08:00] VITALS: BP 149/73
[2022-12-24] MEDS: ASCORBIC ACID 500 MG TABLET PO SCH (08:42)
[2022-12-24] MEDS: AMLODIPINE 5 MG TABLET PO SCH (08:42)
[2022-12-24] MEDS: FINASTERIDE 5 MG TABLET PO SCH (08:42)
[2022-12-24] MEDS: METOPROLOL TARTRATE 50 MG TABLET PO SCH ×2 (08:43→16:18)
[2022-12-24] MEDS: HYDROCODONE/APAP 5-325MG TABLET PO PRN (08:43)
[2022-12-24] MEDS: DIVALPROEX 125 MG TABLET.DR PO SCH ×2 (08:43→20:10)
[2022-12-24] MEDS: REMEDY ESSENTIAL ZINC PASTE 113 GM TOP SCH ×2 (08:44→20:10)
[2022-12-24] MEDS: CLOTRIMAZOLE 1% CREAM 30 GM TUBE TOP SCH ×2 (08:44→16:30)
[2022-12-24 12:00] VITALS: BP 113/53
[2022-12-24 16:00] VITALS: BP 101/51
--- NOTE | 2022-12-24 17:47 | NUR ---
Patient alert and oriented, verbalizes needs and follows directions with intermittent confusion and forgetfulness, reality orientation provided as needed. OOB daily with rehab for PT/OT skilled services as ordered andrew. well and patient actively able to participate in therapy. Assisted with ADLS and at all times through out the shift. Had BM twice during shift, care provided at routine intervals/PRN. RT hip surgical wound site treatment provided as ordered. Affected area with no bleeding or drainage noted adan still in place, appears andrew be healing well; picture updated and placed in patient's chart. Routine medication administered as scheduled and ordered by MD during the shift. All needs anticipated and met. Safety precautions observed; routine rounds and frequent visual checks done.
[2022-12-24] MEDS: DOCUSATE SODIUM 100 MG CAPSULE PO SCH (20:10)
[2022-12-24] MEDS: TAMSULOSIN HCL 0.4 MG CAP.SR.24H PO SCH (20:10)
[2022-12-24] MEDS: ENOXAPARIN SODIUM 30 MG/0.3 ML DISP.SYRIN SUBCUT SCH (20:14)
--- NOTE | 2022-12-25 04:47 | NUR ---
AAOx1-2 with periods of confusion. Patient with a right total hip arthroplasty. Right hip dressing clean dry and intact. Compliant with care. Fall precautions maintained. Siderails up for safety. Call cintron within reach. Calm and cooperative. No behavioral issues noted. Denies any pain nor any discomfort. Incontinent of bowel and bladder. Kept clean and dry. VSS. Tolerated po meds well. Will monitor patient. Bed alarm on.
[2022-12-25] MEDS: LEVOTHYROXINE SODIUM 50 MCG TABLET PO SCH (06:14)
[2022-12-25 08:00] VITALS: BP 130/67
[2022-12-25] MEDS: ASCORBIC ACID 500 MG TABLET PO SCH (09:10)
[2022-12-25] MEDS: DIVALPROEX 125 MG TABLET.DR PO SCH ×2 (09:10→20:12)
[2022-12-25] MEDS: FINASTERIDE 5 MG TABLET PO SCH (09:10)
[2022-12-25] MEDS: AMLODIPINE 5 MG TABLET PO SCH (09:11)
[2022-12-25] MEDS: METOPROLOL TARTRATE 50 MG TABLET PO SCH ×2 (09:11→16:53)
[2022-12-25] MEDS: REMEDY ESSENTIAL ZINC PASTE 113 GM TOP SCH ×2 (09:12→20:13)
[2022-12-25] MEDS: CLOTRIMAZOLE 1% CREAM 30 GM TUBE TOP SCH ×2 (09:13→16:53)
[2022-12-25] MEDS: HYDROCODONE/APAP 5-325MG TABLET PO PRN (09:23)
--- NOTE | 2022-12-25 11:15 | NUR ---
Spoke with Dr Ochoa this AM around 0930 re: ortho evaluation for this pt, he said that he would come in to see the pt. Dr. Slaughter made aware when he was at the bedside just now.
[2022-12-25] MEDS: ENSURE ENLIVE (VAN) 240 ML LIQUID PO SCH ×2 (12:33→16:53)
--- NOTE | 2022-12-25 14:02 | NUR ---
INTERDISCIPLINARY TEAM CONFERENCE
[2022-12-25 16:00] VITALS: BP 106/52
[2022-12-25 20:00] VITALS: BP 116/58
[2022-12-25] MEDS: TAMSULOSIN HCL 0.4 MG CAP.SR.24H PO SCH (20:12)
[2022-12-25] MEDS: DOCUSATE SODIUM 100 MG CAPSULE PO SCH (20:12)
[2022-12-25] MEDS: ENOXAPARIN SODIUM 30 MG/0.3 ML DISP.SYRIN SUBCUT SCH (20:15)
[2022-12-26 04:00] VITALS: BP 141/60
--- NOTE | 2022-12-26 05:45 | NUR ---
Slept intermittently. AAOX1-2. No complaints of pain. Not in acute distress. Kept abduction pillow in place. Kept clean and dry. All medications given as ordered. All needs attended. Safety precautions maintained. Will endorse to incoming nurse.
[2022-12-26] MEDS: LEVOTHYROXINE SODIUM 50 MCG TABLET PO SCH (06:07)
[2022-12-26 07:40] VITALS: BP 105/65
[2022-12-26] MEDS: ENSURE ENLIVE (VAN) 240 ML LIQUID PO SCH ×3 (08:19→17:22)
[2022-12-26] MEDS: DIVALPROEX 125 MG TABLET.DR PO SCH ×2 (08:19→21:26)
[2022-12-26] MEDS: AMLODIPINE 5 MG TABLET PO SCH (08:20)
[2022-12-26] MEDS: FINASTERIDE 5 MG TABLET PO SCH (08:21)
[2022-12-26] MEDS: ASCORBIC ACID 500 MG TABLET PO SCH (08:21)
[2022-12-26] MEDS: METOPROLOL TARTRATE 50 MG TABLET PO SCH ×2 (08:21→17:00)
[2022-12-26] MEDS: REMEDY ESSENTIAL ZINC PASTE 113 GM TOP SCH ×2 (08:23→20:05)
[2022-12-26] MEDS: CLOTRIMAZOLE 1% CREAM 30 GM TUBE TOP SCH ×2 (08:23→17:22)
[2022-12-26] MEDS: HYDROCODONE/APAP 5-325MG TABLET PO PRN (08:24)
[2022-12-26 15:21] VITALS: BP 101/46
[2022-12-26 20:00] VITALS: BP 121/60
[2022-12-26] MEDS: TAMSULOSIN HCL 0.4 MG CAP.SR.24H PO SCH (21:26)
[2022-12-26] MEDS: DOCUSATE SODIUM 100 MG CAPSULE PO SCH (21:26)
[2022-12-26] MEDS: ENOXAPARIN SODIUM 30 MG/0.3 ML DISP.SYRIN SUBCUT SCH (21:27)
--- NOTE | 2022-12-26 23:00 | NUR ---
1905-The patient is aox2. The patient has an abductor pillow to prevent crossing his legs. The patient has no IV access. The patient does not have any sob or complains of pain. The patient is resting comfortably. Call light within reach, two side rails up, bed at lowest position, bed alarm on. Will continue to monitor throughout the shift. 2100- The patient request for extra pillow. Item is given to the patient. The patient has no sob. Will continue to monitor throughout the shift. 0300- Clean, dry, and intact open to air surgical site of the right hip. The patient has no sob or complains of pain. Will continue to monitor throughout the shift.
[2022-12-27 06:04] VITALS: BP 143/62
[2022-12-27] MEDS: LEVOTHYROXINE SODIUM 50 MCG TABLET PO SCH (06:17)
[2022-12-27] MEDS: ENSURE ENLIVE (VAN) 240 ML LIQUID PO SCH ×2 (09:26→12:38)
[2022-12-27] MEDS: DIVALPROEX 125 MG TABLET.DR PO SCH (09:26)
[2022-12-27] MEDS: AMLODIPINE 5 MG TABLET PO SCH (09:27)
[2022-12-27] MEDS: FINASTERIDE 5 MG TABLET PO SCH (09:27)
[2022-12-27] MEDS: REMEDY ESSENTIAL ZINC PASTE 113 GM TOP SCH (09:27)
[2022-12-27] MEDS: CLOTRIMAZOLE 1% CREAM 30 GM TUBE TOP SCH (09:27)
[2022-12-27] MEDS: ASCORBIC ACID 500 MG TABLET PO SCH (09:27)
[2022-12-27 09:28] VITALS: BP 143/62
[2022-12-27] MEDS: METOPROLOL TARTRATE 50 MG TABLET PO SCH (09:28)
--- NOTE | 2022-12-27 15:44 | NUR ---
Patient is discharged to [facility], discharged instructions sent with patient, all personal belongings taken with him. Left unit via [facility] with two ambulance crews alert and verbal in no distress.
== END 2022-12-27 15:35 | disposition home health service (06) | DRG 559 ==
PROVIDERS: ADMIT Physical Medicine & Rehabilitation Pain Medicine; ATTEND Physical Medicine & Rehabilitation Pain Medicine
DX: S72.001D Fracture of unspecified part of neck of right femur, subsequent encounter for closed fracture with routine healing (principal); N17.0 Acute kidney failure with tubular necrosis; D68.59 Other primary thrombophilia; E03.9 Hypothyroidism, unspecified; E78.5 Hyperlipidemia, unspecified; Z96.641 Presence of right artificial hip joint; I10 Essential (primary) hypertension; J44.9 Chronic obstructive pulmonary disease, unspecified; N40.0 Benign prostatic hyperplasia without lower urinary tract symptoms; F03.A0 Unspecified dementia, mild, without behavioral disturbance, psychotic disturbance, mood disturbance, and anxiety; W18.30XD Fall on same level, unspecified, subsequent encounter; Z79.899 Other long term (current) drug therapy; Z87.891 Personal history of nicotine dependence; Z88.0 Allergy status to penicillin
CPT/HCPCS: 36415; 71045; 73501; 83735; 84100; 84443; 85025; 97535-GO-CO; A4663; A6209; A6213; J1650; J3590; Q0163